=== PATIENT | female | born 1975 | race Caucasian/White ===

== ENCOUNTER 2019-10-11 14:18 | Emergency (ER) | payer MEDICARE, OTHER ==
[~2019-10-11] VITALS: Ht 157.5 cm; Wt 72.6 kg
[~2019-10-11 14:18] MED LIST: DOXYCYCLINE HY100 MG PO; HYDROCODON-ACE1 EA12; NAPROSYN500 MG PO; PHENERGAN25 MG/1 ML PO; PREDNISONE5 MG PO; SOMA350 MG PO; TRIAMTERENE-HC1 EAC2 PO; Z BUPROPION HCL; Z ETODOLAC; Z.0.ADDERALL 10 MG10 PO; Z.0.CARISOPRODOL350; Z.0.GABAPENTIN600 MG PO; Z.0.METOPROLOL SUC10 PO; Z.0.PHENERGAN25 M1; Z.0.PREDNISONE10 MG; Z.1.DOXYCYCLINE HY10; Z.2.TRIAMTERENE-HC1
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
--- OUTSIDE RECORDS SUMMARY | 2019-10-12 09:12 | XMS REPORT ---
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 control, adjustment of the mA and/or kV according to patient size, and/or utilization of iterative recons truction technique. DISCUSSION: Scalp/Skull: Unremarkable. Brain sul ci: Appropriate for patient's age. Ventricles: Mild supratentorial ventriculom egaly is present. The temporal horns are not dilated. Extra-axial spaces: No masses or fluid collections. Parenchyma: The right cerebellar tons il extends up to 6 mm below the foramen magnum. No masses, hemorrhage, or larg e vascular territory acute infarct. Dural sinuses: No abnormal densities. Sellar/Suprasellar region: Intact. Skull base: Intact. 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 IMPRESSION: 1. Nonspecific mild supratentorial ventriculomegaly. 2. Otherwise, no acute intracranial abnormalities. 3. 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 Signed by: Dr. Sukhdev Kurtz M.D. on 05/18/2018 11:54 AM Dictated By: SUKHDEV KURTZ MD [id number] Transcribed By: MARYCRUZ on 05/18/18 1419 COPY TO: TITI JURADO MD
--- OUTSIDE RECORDS SUMMARY | 2019-10-12 09:12 | XMS REPORT | Clinical Summary ---
Author Author [facility] Address Unknown Phone Unavailable Care Team Providers Care Phlebotomy Support Tech Name Role Phone Martin Mims MD PCP Allergies Not on File Medications End Date Status Medication Sig Dispensed Refills Start Date Active acetaminophen-codeine as needed. 2 11/09/19 1 (TYLENOL WITH CODEINE #4) 7 300-60 mg per tablet Active atorvastatin (LIPITOR) 40 daily. 3 MG tablet 7 Active carisoprodol (SOMA) 350 as needed. 2 MG tablet 7 Active fluconazole (DIFLUCAN) as needed. 12 01 150 MG tablet 7 Active gabapentin (NEURONTIN) 2 (two) times 3 01 600 mg tablet a day. 7 Active ibuprofen (ADVIL,MOTRIN) as needed. 0 11/23 600 MG tablet 7 Active mupirocin (BACTROBAN) 2 % daily. 3 ointment 7 Active naproxen (NAPROSYN) 500 as needed. 5 MG tablet 7 Active predniSONE (DELTASONE) 5 2 (two) times 3 11/23 mg tablet a day. 7 Active sertraline (ZOLOFT) 50 MG daily. 3 tablet 7 Active SSD 1 % cream daily. 3 7 Active tiZANidine (ZANAFLEX) 4 as needed. 3 MG tablet 7 Active triamcinolone (KENALOG) daily. 3 0.1 % cream 7 Active triamterene-hydrochloroth as needed. 3 iazid (DYAZIDE) 37.5-25 7 mg per capsule Active Problems Problem Noted Date Right spastic hemiparesis 12/01/2016 Family History Medical History Relation Name Comments Hypertension Father Hypertension Mother Relation Name Status Comments Father Mother Social History Date Tobacco Use Types Packs/Day Years Used Never Smoker Drinks/Week oz/Week Comments Alcohol Use No Sex Assigned at Date Recorded Not on file Industry Job Start Date Occupation Not on file Not on file Not on file Travel End Travel History Travel Start No recent travel history available. Last Filed Vital Signs Not on file Plan of Treatment Health Maintenance Due Date Last Done Comments CERVICAL CANCER SCREENING 1996 INFLUENZA VACCINE 12/23/2019 Results Not on fileafter 10/10/2018 Insurance Type Payer Benefit Subscriber ID Effective Phone Address Plan / Dates Group HMO [employer] CIGNA xxxxxxxxxxx [id number] [employer] resent NG HMO MCR ADV HMO [facility] MEDICAID 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
== END 2019-10-11 16:40 | disposition home or self-care (01) ==
LOC: ER 14:18
DX: G89.29 Other chronic pain (principal); M79.7 Fibromyalgia; M06.9 Rheumatoid arthritis, unspecified; G62.9 Polyneuropathy, unspecified
CPT/HCPCS: 99282

== ENCOUNTER 2021-11-19 06:52 | Emergency (ER) | payer OTHER, MEDICARE ==
[~2021-11-19] VITALS: Ht 157.5 cm; Wt 72.6 kg
[2021-11-19] MEDS ORDERED: HYDROCODONE/APAP 5MG-325MG TAB PO ONE (07:15)
[2021-11-19] MEDS ORDERED: DIPHENHYDRAMINE HCL 25 MG CAP PO ONE (07:15)
[2021-11-19] MEDS ORDERED: METHOCARBAMOL 500 MG TAB PO ONE (07:15)
[2021-11-19 08:23] LABS: CLARITY,URINE CLEAR (CLEAR); COLOR,URINE YELLOW (YELLOW); KETONES,URINE TRACE (NEGATIVE); LEUKOCYTE ESTERASE ,URINE TRACE (NEGATIVE); NITRITE,URINE NEGATIVE (NEGATIVE); PROTEIN,URINE DIPSTICK 2+ (NEGATIVE); URINE UROBILINOGEN 1 mg/dL (0.2 - 1)
[2021-11-19 08:51] LABS: BACTERIA,URINE MODERATE /HPF; EPITHELIAL CELLS,URINE FEW /LPF
[2021-11-19] MEDS ORDERED: ONDANSETRON HCL 4 MG ORAL DISINTEGRATING TAB PO ONE (09:30)
[2021-11-19] MEDS ORDERED: Morphine 4mg INJECTION 4 MG/ML INJ IM ONE (09:30)
[2021-11-19] MEDS ORDERED: CEFDINIR300 MG PO (09:32)
== END 2021-11-19 09:20 | disposition home or self-care (01) ==
LOC: ER 06:54
DX: M48.07 Spinal stenosis, lumbosacral region (principal); N39.0 Urinary tract infection, site not specified; G80.2 Spastic hemiplegic cerebral palsy; M79.7 Fibromyalgia
CPT/HCPCS: 72131; 81001; 81025; 99283; J2270

== ENCOUNTER 2022-04-22 10:14 | Emergency (ER) | payer MEDICARE ==
[~2022-04-22] VITALS: Ht 157.5 cm; Wt 72.6 kg
[~2022-04-22 10:14] MED LIST changes: +CEFDINIR300 MG PO
[2022-04-22] MEDS ORDERED: SODIUM CHLORIDE 0.9% 1000ML 1,000 ML IV STA (11:20)
[2022-04-22 11:46] LABS: BASOPHILS # (AUTO) 0.1 (0.0-0.1); BASOPHILS % 0.5 % (0.0-1.0); EOSINOPHILS % 0.3 % (0.0-6.0); HEMATOCRIT 38.3 % (34.2-44.1); HEMOGLOBIN 12.2 g/dL (12.0-16.0); LYMPHOCYTES # (AUTO) 2.4 (1.0-3.2); LYMPHOCYTES % 21.4 % (18.0-39.1); MEAN CORPUSCULAR HEMOGLOBIN 29.2 pg (28-32); MEAN CORPUSCULAR HGB CONC 31.9 g/dL (31-35); MEAN CORPUSCULAR VOLUME 91.6 fL (81-99); MONOCYTES # (AUTO) 0.8 (0.2-0.8); MONOCYTES % 7.1 % (4.4-11.3); NEUTROPHILS % 70.4 % (38.7-80.0); PLATELET COUNT 356 x10e3/uL (140-360); RED BLOOD COUNT 4.18 x10e6/uL (3.6-5.1); RED CELL DISTRIBUTION WIDTH 13.2 % (11.7-14.4)
[2022-04-22 12:02] LABS: AMPHETAMINES SCREEN,URINE NEGATIVE (NEGATIVE); BENZODIAZEPINES SCREEN,URINE NEGATIVE (NEGATIVE); PHENCYCLIDINE SCREEN,URINE NEGATIVE (NEGATIVE)
[2022-04-22 12:07] LABS: CLARITY,URINE CLEAR (CLEAR); COLOR,URINE YELLOW (YELLOW); KETONES,URINE NEGATIVE (NEGATIVE); LEUKOCYTE ESTERASE ,URINE NEGATIVE (NEGATIVE); NITRITE,URINE NEGATIVE (NEGATIVE); PROTEIN,URINE DIPSTICK >=300 (NEGATIVE); URINE UROBILINOGEN 0.2 mg/dL (0.2 - 1)
[2022-04-22 12:24] LABS: ALBUMIN 4.5 g/dL (3.5-5.0); ALBUMIN/GLOBULIN RATIO 1.3 (0.8-2.0); ANION GAP 18.9 mmol/L (8-16); CALCIUM 9.7 mg/dL (8.4-10.2); CREATININE, SERUM 0.74 mg/dL (0.57-1.11); POTASSIUM 3.9 mmol/L (3.5-5.1)
[2022-04-22 12:34] LABS: CREATINE KINASE MB 8.7 ng/mL (0-5.0)
[2022-04-22 12:40] LABS: BACTERIA,URINE MODERATE /HPF; WBC,URINE (MAN) 0-5 /HPF (0-5)
[2022-04-22 12:41] LABS: EPITHELIAL CELLS,URINE RARE /LPF; RBC,URINE 0-5 /HPF (0-5)
[2022-04-22] MEDS ORDERED: ONDANSETRON HCL INJ 2MG/ML 2ML 2 MG/ML VIAL IV STA (13:27)
[2022-04-22] MEDS ORDERED: Morphine 4mg INJECTION 4 MG/ML INJ IV ONE (13:30)
[2022-04-22] MEDS ORDERED: ULTRAM 50MG50 MG PO (14:21)
[2022-04-22 15:20] VITALS: BP 141/99
== END 2022-04-22 15:22 | disposition home or self-care (01) ==
LOC: ER 10:45
DX: M17.11 Unilateral primary osteoarthritis, right knee (principal); M06.9 Rheumatoid arthritis, unspecified; G80.1 Spastic diplegic cerebral palsy; Z88.5 Allergy status to narcotic agent; Z88.8 Allergy status to other drugs, medicaments and biological substances; Z91.048 Other nonmedicinal substance allergy status; G89.4 Chronic pain syndrome
CPT/HCPCS: 36415; 71045; 73562; 80053; 80307; 81001; 81025; 82550; 82553; 84484; 85025; 93005; 99284; J2270; J2405; J7030